=== PATIENT | male | born 1985 | race Caucasian/White ===

== ENCOUNTER 2024-05-19 09:17 | Emergency (ER) | payer MEDICAID ==
[~2024-05-19] VITALS: Ht 188 cm; Wt 52.2 kg
[2024-05-19 09:23] VITALS: BP 141/92; PULSE 79; RESP 15; O2SAT 100
[2024-05-19] MEDS ORDERED: IBUP-1986 PO (10:23)
[2024-05-19] MEDS ORDERED: ACET-1025 PO (10:23)
[2024-05-19 10:43] VITALS: TEMP 98
== END 2024-05-19 10:44 | disposition home or self-care (01) ==
LOC: ER 09:18
DX: M79.641 Pain in right hand (principal); Z88.6 Allergy status to analgesic agent
CPT/HCPCS: 73130; 99283

== ENCOUNTER 2024-06-01 09:39 | Emergency (ER) | payer MEDICAID ==
[~2024-06-01] VITALS: Ht 188 cm; Wt 68.2 kg
[~2024-06-01 09:39] MED LIST: IBUP-1986 PO
[2024-06-01] MEDS: ketorolac trometh 15mg/ml vial 15 MG/ML ML IM ONE (10:57)
[2024-06-01 13:11] VITALS: BP 122/77; PULSE 60; RESP 16; TEMP 98; O2SAT 99
== END 2024-06-01 13:13 | disposition home or self-care (01) ==
LOC: ER 09:40
DX: M25.512 Pain in left shoulder (principal); F17.200 Nicotine dependence, unspecified, uncomplicated; W18.2XXA Fall in (into) shower or empty bathtub, initial encounter; Y93.E1 Activity, personal bathing and showering; Y92.89 Other specified places as the place of occurrence of the external cause; Y99.8 Other external cause status
CPT/HCPCS: 73030; 96372; 99283; J1885; A4565

== ENCOUNTER 2024-07-11 12:54 | Emergency (ER) | payer MEDICAID ==
[~2024-07-11] VITALS: Ht 188 cm; Wt 67.4 kg
--- NOTE | 2024-07-11 14:10 | ELECTROCARDIOGRAPH REPORT ---
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 Jose Miguel Shelby Measurements Intervals [place] Rate: 76 P: 0 [place]: 161 QRS: 100 QRSD: 99 T: 42 QT: 376 QTc: 423 Interpretive Statements Atrial-paced rhythm Consider left ventricular hypertrophy ST elevation, consider anterior injury Electronically Signed On 07-11-2024 14:56:[address] Jose Miguel Shelby Please click the below link to view image of tracing.
[2024-07-11 14:48] LABS: BASOPHILS % (AUTO) 0.4 % (0-1); EOSINOPHILS % (AUTO) 0.4 % (0-6); HEMATOCRIT 48.4 % (42.0-52.0); HEMOGLOBIN 16.3 g/dl (14.0-17.9); LYMPHOCYTES # (AUTO) 1.8 X10'3 (1.1-4.8); LYMPHOCYTES % (AUTO) 28.4 % (21-51); MEAN CORPUSCULAR HEMOGLOBIN 31.5 PG (27.0-31.0); MEAN CORPUSCULAR HGB CONC 33.8 g/dL (33.0-36.5); MEAN CORPUSCULAR VOLUME 93.3 FL (78-98); MEAN PLATELET VOLUME 9.7 FL (7.4-10.4); MONOCYTES # (AUTO) 0.6 X10'3 (0-0.9); MONOCYTES % (AUTO) 9.8 % (2-12); PLATELET COUNT 122 X10'3 (140-440); RED BLOOD COUNT 5.18 X10'6 (4.70-6.10); WHITE BLOOD COUNT 6.5 X10'3 (4.5-11.0)
[2024-07-11 14:57] LABS: ALANINE AMINOTRANSFERASE 21 U/L (12-78); ALBUMIN 4.3 G/DL (3.4-5.0); ALBUMIN/GLOBULIN RATIO 1.3 (1.1-1.5); ALKALINE PHOSPHATASE 97 IU/L (46-116); ANION GAP 9 (8-16); ASPARTATE AMINO TRANSFERASE 15 U/L (10-37); BILIRUBIN,TOTAL 0.6 MG/DL (0.1-1.0); BLOOD UREA NITROGEN 9 MG/DL (7-18); BUN/CREATININE RATIO 9.3 (10.0-20.0); CALCIUM 9.9 MG/DL (8.5-10.1); CHLORIDE 103 MMOL/L (99-107); CREATININE 0.97 MG/DL (0.60-1.10); GLUCOSE 98 MG/DL (70-104); POTASSIUM 3.6 MMOL/L (3.5-5.1); SODIUM 139 MMOL/L (135-145); TOTAL CARBON DIOXIDE 26.9 MMOL/L (24-32); TOTAL PROTEIN 7.5 G/DL (6.4-8.2); eCRCL 98 ML/MIN; eGFR 87 ML/MIN
--- NOTE | 2024-07-11 16:18 | RADIOLOGY REPORT ---
EXAM: DI CHEST,SINGLE VIEW HISTORY: Near syncope COMPARISON: None TECHNIQUE: PA upright view of the chest was performed. FINDINGS: No pneumothorax, consolidative infiltrates, or pulmonary edema. The heart is not enlarged. There is a right chest pacemaker. IMPRESSION: No acute intrathoracic process.
[2024-07-11] MEDS: normal saline 1000ml 1,000 ML IV ONE ×2 (16:57→16:59)
--- NOTE | 2024-07-11 17:49 | Physician Documentation ---
History of Present Illness General Chief Complaint: Dizziness Stated Complaint: LOW HEART RATE Time Seen by MD: 14:44 Primary Medical Doctor: Jenny Mathews Mode of Arrival: POV, Ambulatory History of Present Illness Initial Comments 31-year-old male with a known history of implantable pacemaker presents to the emergency department as this morning while at work he had a near syncopal episode. Reportedly his coworkers said that has heart rate was slow yet no doc umented heart rate. 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 Otherwise has been doing well. No recent illness injury or infections. Medication Reconciliation Allergies: Coded Allergies: No Known Allergies (Unverified , 07/11/24) Scheduled Ibuprofen (Ibuprofen), 1 TAB PO Q8H Past Medical History Past Medical History: No Pertinent History Review of Systems All Other Systems at this time: Reviewed and Negative Constitutional: Denies: fever, chills RESP: Denies: short of breath, cough CV: Denies: chest pain, palpitations, edema, syncope Physical Exam Physical Exam Vital Signs: RN Vital Signs have been reviewed: Yes, Heart Rate: 89, Respira tory Rate: 18, BP: 145/89, Pulse Oximetry: 98, Weight: 67.400 Oxygen Flow Rate: 0 General Appearance: alert, WD/WN, no apparent distress Head: normal inspection Face: normal inspection Pupils/EOM/Fundus: PERRLA Respiratory: lungs clear, no respiratory distress Chest: no accessory muscle use Cardiovascular: normal peripheral pulses, regular rate, rhythm; No: no edema, no gallop, no JVD, no murmur, JVD Gastrointestinal: normal palpation Extremities: normal range of motion Neurologic: oriented x4, 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 nml as tested Motor / Sensory: no motor deficit Psychiatric: normal mood/affect Skin: normal color, warm/dry Lymphatic: no adenopathy Progress Results/Orders Results/Orders Orders - KAVEH GROVE PAC Chest,Single View (07/11/24 ) Completed Orders - KAVEH GROVE PAC Chest,Single View (07/11/24 ) Normal Saline 1000ml (Sodium Chloride 10 (07/11/24 16:00) Normal Saline 1000ml (Sodium Chloride 10 (07/11/24 16:05) Medications Received in ER Medications (Trade) Dose Ordered Sig/Talya Route PRN Reason Start Time Stop Time Status Last Admin Dose Admin Sodium Chloride 1,000 ml @ 1,000 mls/hr ONCE ONCE IV 07/11/24 16:00 07/11/24 16:59 DC 07/11/24 16:57 1,000 MLS/HR Vital Signs 07/11/24 07/11/24 07/11/24 07/11/24 13:11 13:54 14:05 17:03 Pulse 70 68 89 Resp 16 16 18 18 B/P (MAP) 135/84 117/85 (96) 145/89 (107) Pulse Ox 100 98 98 O2 Flow Rate 0 0 0 Laboratory Tests Test 07/11/24 12:50 White Blood Count 6.5 Red Blood Count 5.18 Hemoglobin 16.3 Hematocrit 48.4 Mean Corpuscular Volume 93.3 Mean Corpuscular Hemoglobin 31.5 H Mean Corpuscular Hemoglobin Concent 33.8 Red Cell Distribution Width 13.0 Platelet Count 122 L Mean Platelet Volume 9.7 Neutrophils (%) (Auto) 61.0 Lymphocytes (%) (Auto) 28.4 Monocytes (%) (Auto) 9.8 Eosinophils (%) (Auto) 0.4 Basophils (%) (Auto) 0.4 Neutrophils # (Auto) 4.0 Lymphocytes # (Auto) 1.8 Monocytes # (Auto) 0.6 Eosinophils # (Auto) 0.0 Basophils # (Auto) 0.0 CBC Comment Sodium Level 139 Potassium Level 3.6 Chloride Level 103 Carbon Dioxide Level 26.9 Anion Gap 9 Blood Urea Nitrogen 9 Creatinine 0.97 Estimated GFR/1.73 m2 87 BUN/Creatinine Ratio 9.3 L Glucose Level 98 Calcium Level 9.9 Total Bilirubin 0.6 Aspartate Amino Transf (AST/SGOT) 15 Alanine Aminotransferase (ALT/SGPT) 21 Alkaline Phosphatase 97 Total Protein 7.5 Albumin 4.3 Globulin 3.2 Albumin/Globulin Ratio 1.3 Chemistry Comments Medical Decision Making Differential Diagnosis Pacemaker interrogation unremarkable. Labs all reassuring. Patient received IV normal saline for volume resuscitation. We will follow up with his primary care physician and return to the emergency department as needed. Safely discharged from the emergency room. Departure Disposition: HOME / SELF CARE / HOMELESS Impression: Primary Impression: Syncope, near Condition: Improved Discharge Instructions: Near-Syncope Additional Instructions: Thin emergency department your pacemaker was interrogated and shows no significant episodes. He received IV hydration and laboratory evaluation which were all reassuring. May follow up appointment with the primary care physician. He continue efforts to establish with Cardiology in [place]. Moss of his emergency department [facility]. Referrals: NO PRIMARY CARE PROVIDER (PCP) Education Educated: Patient, Family Educated regarding: diagnosis Signature Scribe Signature: . Attestation: . KAVEH GROVE PAC Jul 11, 2024 17:49
[2024-07-11 18:25] VITALS: BP 132/78; PULSE 74; RESP 18; O2SAT 99
== END 2024-07-11 18:40 | disposition home or self-care (01) ==
LOC: ER 12:54
DX: R55 Syncope and collapse (principal); Z95.0 Presence of cardiac pacemaker
CPT/HCPCS: 36415; 71045; 80053; 85025; 93005; 96360; 99285; J7030

== ENCOUNTER 2024-09-16 15:41 | Emergency (ER) | payer MEDICAID ==
[~2024-09-16] VITALS: Ht 188 cm; Wt 66.8 kg
[2024-09-16 15:50] VITALS: BP 148/86; PULSE 84; RESP 16; TEMP 98.3; O2SAT 98
--- NOTE | 2024-09-16 15:57 | ELECTROCARDIOGRAPH REPORT ---
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
--- NOTE | 2024-09-16 16:17 | RADIOLOGY REPORT ---
DI CHEST,SINGLE VIEW, HISTORY: CP COMPARISON: DI CHEST,SINGLE VIEW on DOS: 07/11/24 DI CHEST,SINGLE VIEW on DOS: 07/11/24 TECHNICAL DATA: 1 view of the chest was obtained. FINDINGS: Lines and tubes: A cardiac pacer is noted. Cardiomediastinal silhouette: normal Pulmonary vasculature: normal Lung expansion: normal Lung airspace: normal Lung interstitium: normal Pleura: normal Pneumothorax: no Bones: Unremarkable Other: no IMPRESSION: No acute intrathoracic abnormality.
--- NOTE | 2024-09-16 17:26 | Physician Documentation ---
History of Present Illness ~ Chief Complaint: See Chief Complaint Stated Complaint: PACEMAKER COMPLICATION Time Seen by MD: 16:30 OK to notify your PCP?: Yes Primary Medical Doctor: Jenny Phillips [facility] Source: patient Mode of Arrival: POV Exam Limitations: no limitations HPI 39-year-old male with chief complaint feeling a indurated area just above his pacemaker two days ago. He states he has had the pacemaker for a few years in his never felt this before so it made him concerned that maybe the leads have moved. He denies any other concerns or complaints no redness over the area. He denies any recent weight loss Tetanus within 5 Years?: No Allergies: Coded Allergies: No Known Allergies (Unverified , 07/11/24) Active Prescriptions See Medication Reconciliation Form. Medication Reconciliation Scheduled Ibuprofen (Ibuprofen), 1 TAB PO Q8H Past Medical History Past Medical History: No Pertinent History Review of Systems All Other Systems at this time: Reviewed and Negative Physical Exam Vital Signs: Temperature: 98.3, Source: Oral, Heart Rate: 84, Respiratory Rate: 16, BP: 148/86, Pulse Oximetry: 98, Weight: 66.800 Oxygen Flow Rate: 0 Physical Exam General Appearance: Alert, WD/WN. NAD. HEENT: NCAT, PERRL, EOMI. Neck: Supple, trachea midline. Cardiovascular: RRR. No m/r/g. Lungs: CTAB. Breathing unlabored Extremities: Normal inspection. No edema. Skin: Warm/dry, normal color.pacemaker right chest wall present just proximal to the pacemaker the skin is slightly indurated but there is no overlying erythema, areas nontender Neurological: Alert and oriented x4, normal gait. Psychiatric: Affect congruent with mood. Progress Progress Note Chest x-ray was done reviewed by myself showed these in place no broken lead, no infiltrates no acute findings Results/Orders Results/Orders Vital Signs 09/16/24 15:50 Temp 98.3 Pulse 84 Resp 16 B/P (MAP) 148/86 Pulse Ox 98 O2 Flow Rate 0 Medical Decision Making Differential Dx:Considerations: Include: Chest wall contusion, Flail chest, Myocardial contusion, Pneumothorax, Pulmonary contusion, Rib fracture, Renal contusion, Splenic fracture, Tension pneumothorax, Other Additional Comment There is no overlying redness pacemaker leads look like they are in normal position, no tenderness to area. the area that myself and the patient are palpating correspond to the pacemaker leads that come right off the proximal aspect of the pacemaker. Departure Time of Disposition: 19:07 Disposition: 01 HOME / SELF CARE / HOMELESS Impression: Primary Impression: Pacemaker Condition: Stable Discharge Instructions: Pacemaker Implantation, Adult Additional Instructions: MONITOR IF OVERLYING REDNESS, INCREASING IN SIZE RETURN TO ER Referrals: NO PRIMARY CARE PROVIDER (PCP) Education Educated: Patient Educated regarding: diagnosis, treatment, need for follow up Signature Scribe Signature: x Attestation: JOE Ford Sep 16, 2024 17:26
== END 2024-09-16 17:31 | disposition home or self-care (01) ==
LOC: ER 15:41
DX: T82.118A Breakdown (mechanical) of other cardiac electronic device, initial encounter (principal); Z95.0 Presence of cardiac pacemaker
CPT/HCPCS: 71045; 93005; 99283